=== PATIENT | male | born 1960 | race Caucasian/White ===

== ENCOUNTER 2019-07-07 05:53 | Inpatient (IN) | payer OTHER ==
[~2019-07-07] VITALS: Ht 177.8 cm; Wt 127.0 kg
--- NOTE | 2019-07-07 06:12 | NUR ---
Patient to ER bed 8 to gown for evaluation. Side rails up.
[2019-07-07 06:15] VITALS: BP_SYST 179
--- NOTE | 2019-07-07 06:15 | NUR ---
ER at bedside examining patient.
--- NOTE | 2019-07-07 06:15 | NUR ---
Pt brought in by self. Pt awake, alert, oriented x4. pt ambulates with steady gait. Pt states that he is visitng from [place] on business. Pt states that approx 48 hours ago he began to have epigastric pain 10/10 nonradiating in the midline. Pt states that he has history of gerd and has taken mylanta, Prilosec, tums with no relief. Pt states that he has also tried drinking water and eating low PH crackers. Pt states that he has no other symptoms at this time. Pt denies Nausea, vomiting, diarrhea, chest pain, shortness of breath. pt denies any other complaint. Pt states he has had similar pain before, however it usually self-resolves or is mitigated by otc medications. Pt resting in ED bed, no acute distress at this time. Pt denies headache or dizziness. PT vital signs stable at this time. Pt attached to cardiac, blood pressure and spo2 monitor.
[2019-07-07] MEDS ORDERED: NACL 0.9% 1,000 ML IV ONE ×2 (06:22→09:15)
[2019-07-07] MEDS ORDERED: ONDANSETRON HCL 4 MG/2 ML VIAL IVP ONE (06:30)
[2019-07-07] MEDS ORDERED: MORPHINE 4 MG/ML INJ. SYRINGE IVP ONE ×2 (06:30→09:00)
--- NOTE | 2019-07-07 06:45 | NUR ---
Pt Given Ice chips upon request.
--- NOTE | 2019-07-07 07:12 | NUR ---
Report given to SUKHDEV Oliveros. All care endorsed.
--- NOTE | 2019-07-07 07:20 | NUR ---
Report received from Presley SANTIZO. Pt is in stable condition
[2019-07-07 07:23] LABS: CALCIUM 9.4 mg/dL (8.4-11.0); CREATININE 0.97 mg/dL (0.55-1.30); EOSINOPHILS % (AUTO) 0.1 % (0.0-4.0); HEMATOCRIT 46.9 % (36-54); HEMOGLOBIN 15.2 g/dL (14.0-18.0); LYMPHOCYTES # (AUTO) 1.2 K/uL (1.0-5.5); LYMPHOCYTES % (AUTO) 7.6 % (20.5-51.5); MEAN CORPUSCULAR HEMOGLOBIN 29 pg (27-31); MEAN CORPUSCULAR HGB CONC 33 % (32-36); MEAN CORPUSCULAR VOLUME 90 fL (79.0-98.0); MONOCYTES % (AUTO) 6.5 % (1.7-9.3); NEUTROPHILS # (AUTO) 13.1 K/uL (1.8-7.7); NEUTROPHILS % (AUTO) 85.8 % (40.0-70.0); PLATELET COUNT (AUTO) 262 K/uL (130-430); RED BLOOD CELL COUNT(AUTO) 5.22 MIL/uL (4.2-6.2); RED CELL DISTRIBUTION WIDTH 14.4 % (9.0-15.0); WHITE BLOOD COUNT (AUTO) 15.3 K/uL (4.8-10.8)
[2019-07-07 07:26] LABS: PROTHROMBIN TIME 9.9 SECS (9.5-12.5)
[2019-07-07 07:29] LABS: ALBUMIN 3.9 g/dL (3.4-4.8); TOTAL BILIRUBIN 1.5 mg/dL (0.0-1.0)
--- NOTE | 2019-07-07 08:01 | NUR ---
Patient taken to CT via gurney. Escorted by radiology staff.
[2019-07-07 08:13] LABS: BILIRUBIN,URINE NEGATIVE (NEGATIVE); BLOOD, URINE 1+ (NEGATIVE); CLARITY/URINE CLEAR (CLEAR); COLOR,URINE YELLOW (YELLOW); GLUCOSE,URINE NEGATIVE (NEGATIVE); KETONES,URINE NEGATIVE (NEGATIVE); LEUKOCYTE ESTERASE ,URINE NEGATIVE (NEGATIVE); NITRITE, URINE NEGATIVE (NEGATIVE); PH,URINE 6.5 (5.0-8.0); PROTEIN URINE NEGATIVE (NEGATIVE); UROBILINOGEN,URINE 0.2 (0.2-1.0)
[2019-07-07 08:45] LABS: BACTERIA,URINE RARE /HPF (None Seen); WBC,URINE 0-3 /HPF (0-3)
[2019-07-07 08:46] LABS: MUCUS,URINE 1+ /LPF (None Seen)
[2019-07-07] MEDS ORDERED: DIPHENHYDRAMINE INJ 50 MG/ML VIAL IVP ONE (09:00)
[2019-07-07] MEDS ORDERED: AMPICILLIN SODIUM/SULBACTAM NA 3 GM in NS 100 ML IV ONE (09:00)
--- NOTE | 2019-07-07 09:10 | NUR ---
Orders received via phone from Dr. Lewis, entered by RN.
--- NOTE | 2019-07-07 09:10 | NUR ---
blood cx drawn. Unasyn IVPB given per MD order
--- NOTE | 2019-07-07 09:13 | NUR ---
Patient will be admitted to care of Dr. Lewis. Admitted to Med Surg unit. Will go to room 108C. Complete and up to date summary report printed. SBAR report to be given at bedside with opportunity for questions.
[2019-07-07] MEDS ORDERED: LR 1,000 ML IV SCH (09:15)
[2019-07-07] MEDS ORDERED: AMPICILLIN SODIUM/SULBACTAM NA 3 GM VIAL ONE (09:18)
[2019-07-07] MEDS ORDERED: OMEP20CA11 PO (09:19)
--- NOTE | 2019-07-07 09:42 | NUR ---
Patient will be admitted to care of Dr. Lewis. Admitted to Med Surg unit. Will go to room 108-c. Belongings list completed. Complete and up to date summary report printed. SBAR report to be given at bedside with opportunity for questions.bedside report to be given
--- NOTE | 2019-07-07 09:49 | NUR ---
ADMISSION NOTE Received patient from ER via nyla, received report from KIYA SANTIZO. Patient admitted with diagnosis of ACUTE CHOLECYSTITIS . Patient oriented to hospital routine, call light, toileting and safety-patient verbalized understanding.
[2019-07-07 09:58] VITALS: BP_SYST 162
--- NOTE | 2019-07-07 10:00 | NUR ---
ROUNDS MADE. VITALS SIGNS STABLE EXCEPT FOR BP 162/94. DR MARIE CAME AND EVALUATE AND MADE ORDERS.
--- NOTE | 2019-07-07 10:15 | NUR ---
ABDOMINAL ULTRASOUND DONE.
--- NOTE | 2019-07-07 10:43 | NUR ---
CONSULTATION PAGED/CALLED Reason for Consultation: ACUTE CHOLECYSTITIS Person Who was Notified: JESSIE Consulting Physician: Inseam Trimming Machine Operator Specialty: Ordering Physician:
[2019-07-07] MEDS ORDERED: cloNIDine HCL 0.1 MG TABLET PO PRN (11:00)
[2019-07-07] MEDS ORDERED: ONDANSETRON HCL 4 MG/2 ML VIAL IVP PRN ×3 (11:00→17:45)
[2019-07-07] MEDS ORDERED: HYDROmorphone 1 MG INJ. 1 MG/ML AMPUL IVP PRN (11:15)
[2019-07-07] MEDS ORDERED: HYDROmorphone 1 MG INJ. 1 MG/ML AMPUL IM PRN (11:15)
--- NOTE | 2019-07-07 12:00 | NUR ---
MRSA SCREE BILATERALLY SENT TO LABORATORY
[2019-07-07 12:15] VITALS: BP_SYST 147
[2019-07-07] MEDS: PIPERACILLIN/TAZO 3.375/DEX-IS 50 ML IV SCH ×2 (12:30→21:52)
--- NOTE | 2019-07-07 15:10 | NUR ---
DILAUDID 1 MG IV GIVEN FOR ABDOMINAL PAIN
--- NOTE | 2019-07-07 15:15 | NUR ---
DR DRUMMOND CAME AND EXPLAINED THE PROCEDURE TO THE PATIENT AND FAMILY. AND DR CAZARES ANESTHESIOLOGIST CAME AND BOTH CONSENT SIGNED, INCLUDING THE BLOOD TRANSFUSION IN CASE THEY NEED BLOOD.
--- NOTE | 2019-07-07 15:40 | NUR ---
PATIENT BROUGHT TO OR BY RUSH SANTIZO AND DR CAZARES.
[2019-07-07] MEDS ORDERED: fentaNYL CITRATE/PF 100 MCG/2 ML AMP IVP ONE (15:45)
[2019-07-07] MEDS ORDERED: LR 1,000 ML IV.SOLN IV ONE (15:45)
[2019-07-07] MEDS ORDERED: SEVOFLURANE 15 MIN GAS INH ONE (15:45)
[2019-07-07] MEDS ORDERED: BUPIVACAINE LIPOSOME/PF 266 MG/20 ML VIAL INFIL ONE (15:45)
[2019-07-07] MEDS ORDERED: ROCURONIUM BROMIDE 10 MG/ML (ZEMURON) IV ONE (15:45)
[2019-07-07] MEDS ORDERED: MIDAZOLAM HCL 5 MG/5 ML VIAL IVP ONE (15:45)
[2019-07-07] MEDS ORDERED: NS IRRIG SOLN 1000 ML IR ONE (15:45)
[2019-07-07] MEDS ORDERED: BUPIVACAINE /EPINEPHRINE/PF 0.25% 30 ML VIAL INJ ONE (15:45)
[2019-07-07] MEDS ORDERED: PROPOFOL 200MG/ 20ML VIAL (DIPRIVAN) IV ONE (15:45)
--- NOTE | 2019-07-07 16:08 | NUR ---
PROCEDURE TO BE DONE LAPAROSCOPIC CHOLECYSTECTOMY VERSUS OPEN CHOLECYSTECTOMY AND HERNIAL REPAIR.
[2019-07-07] MEDS ORDERED: fentaNYL CITRATE/PF 100 MCG/2 ML AMP IVP PRN ×2 (16:15)
[2019-07-07 16:18] VITALS: BP_SYST 157
--- NOTE | 2019-07-07 17:04 | NUR ---
still in or for procedure.
[2019-07-07] MEDS ORDERED: CEFAZOLIN 2 GM IVPB PREMIX 50 ML IV SCH (17:45)
--- NOTE | 2019-07-07 18:27 | NUR ---
still in the procedure or recovery room.
[2019-07-07 18:40] VITALS: BP_SYST 132
--- NOTE | 2019-07-07 18:40 | NUR ---
patient came back from recovery via gurney in stable condition. alert awake but still drowsy. family friend at the bedside. vital signs stable. afebrile temp 97.6, respiration, 18, hr 102 O2Sat 94% on 2lnc. as per report patient had sleep apnea on the procedure and on the recovery unit. bp 132/76. still on LR at 120cc/hr infusing on well. has abdominal incision with big band aid x 3. another incision on the umbilical area white big bandaid noted. no bleeding noted. dry/intact. has bilateral scds on the lower extremities noted. will continue to monitor with incoming nite nurse.
--- NOTE | 2019-07-07 19:24 | NUR ---
endorsed to incoming nurse Lonnie SANTIZO
--- NOTE | 2019-07-07 19:30 | NUR ---
OPENING NOTES Patient is resting, eyes closed, no signs of respiratory distress observed, 2L NC, 98% O2 saturation. IVF running, dressings c/d/i. Post op vitals to be continued, incentive spirometer provided, call light within reach, bed alarm on. Patient able to demonstrate use of call light. Patient asks for ice chips. Will follow up and continue to monitor.
[2019-07-07 20:00] VITALS: BP_SYST 127
[2019-07-07] MEDS ORDERED: VANCOMYCIN HCL 1 GM/NS PREMIX 250 ML IV ONE (21:45)
--- NOTE | 2019-07-07 21:45 | NUR ---
SPOKE TO VARGAS PALOMINO TO BE DISCONTINUED, NEW ORDER FOR VANCOMYCIN ONE GRAM ONE TIME ORDER RECEIVED. VERIFIED FLAGYL AND ZOSYN ORDER.
[2019-07-07] MEDS: NACL 0.9% 1,000 ML IV SCH (21:51)
[2019-07-07] MEDS ORDERED: VANCOMYCIN HCL 1000 MG/VIAL IV ONE (22:57)
[2019-07-07] MEDS: HYDROmorphone 1 MG INJ. 1 MG/ML AMPUL IVP PRN (23:31)
--- NOTE | 2019-07-08 00:14 | NUR ---
Patient provided a few ice chips. Patient tolerates well. Will continue to monitor.
[2019-07-08] MEDS ORDERED: metroNIDAZOLE 500 mg/NS 200 ML IV ONE (00:39)
[2019-07-08 01:13] VITALS: BP_SYST 129
[2019-07-08] MEDS: metroNIDAZOLE 500 mg/NS 100 ML IV SCH ×2 (01:51→10:40)
[2019-07-08 02:17] VITALS: BP_SYST 162
[2019-07-08] MEDS: PIPERACILLIN/TAZO 3.375/DEX-IS 50 ML IV SCH ×5 (02:47→23:20)
[2019-07-08] MEDS: NACL 0.9% 1,000 ML IV SCH ×2 (03:32→10:43)
--- NOTE | 2019-07-08 04:00 | NUR ---
Provided pain medication to patient. Patient tolerated well. Will continue to monitor.
[2019-07-08] MEDS: HYDROmorphone 1 MG INJ. 1 MG/ML AMPUL IVP PRN ×3 (04:35→17:53)
[2019-07-08 06:47] LABS: ALBUMIN 3.2 g/dL (3.4-4.8); CALCIUM 8.7 mg/dL (8.4-11.0); CREATININE 1.06 mg/dL (0.55-1.30); POTASSIUM 3.9 mmol/L (3.5-5.1); TOTAL BILIRUBIN 2.3 mg/dL (0.0-1.0)
[2019-07-08 06:53] LABS: BASOPHILS % (AUTO) 0.1 % (0.0-2.0); HEMATOCRIT 43.3 % (36-54); HEMOGLOBIN 14.1 g/dL (14.0-18.0); LYMPHOCYTES # (AUTO) 0.9 K/uL (1.0-5.5); LYMPHOCYTES % (AUTO) 5.8 % (20.5-51.5); MEAN CORPUSCULAR HEMOGLOBIN 30 pg (27-31); MEAN CORPUSCULAR HGB CONC 33 % (32-36); MEAN CORPUSCULAR VOLUME 90 fL (79.0-98.0); MONOCYTES # (AUTO) 1.7 K/uL (0.0-1.0); MONOCYTES % (AUTO) 10.2 % (1.7-9.3); NEUTROPHILS # (AUTO) 13.6 K/uL (1.8-7.7); NEUTROPHILS % (AUTO) 83.9 % (40.0-70.0); PLATELET COUNT (AUTO) 239 K/uL (130-430); RED CELL DISTRIBUTION WIDTH 14.5 % (9.0-15.0); WHITE BLOOD COUNT (AUTO) 16.2 K/uL (4.8-10.8)
--- NOTE | 2019-07-08 07:11 | NUR ---
CLOSING NOTES Patient is resting, no signs of acute respiratory distress observed. IVF running, dressings c/d/i. Incentive spirometer at bedside. All needs met throughout shift. Able to use call light, call light within reach, bed alarm on, bed at lowest position. Will endorse care to oncoming shift.
[2019-07-08 08:14] VITALS: BP_SYST 127
[2019-07-08] MEDS: LISINOPRIL 10 MG TABLET (PRINIVIL) PO SCH (08:37)
[2019-07-08] MEDS: HYDROcodone/ACETAMIN 5-325 MG TAB (NORCO/ VICODIN) PO PRN ×2 (08:38→23:24)
--- NOTE | 2019-07-08 08:45 | NUR ---
PT GIVEN PAIN MED AND AM MEDS. PT ASSISTED BACK TO BED, AFTER SITTING FOR BREAKFAST ON THE CHAIR. PT ASSITED TO BATHROOM EARLIER FOR URINATION.
[2019-07-08] MEDS: ACETAMINOPHEN 325 MG TABLET PO PRN (10:59)
[2019-07-08 12:00] VITALS: BP_SYST 131
--- NOTE | 2019-07-08 14:00 | NUR ---
DR DRUMMOND WAS HERE AND SEEN PT, SPOKE WITH PT AND FAMILY AT BEDSIDE.
--- NOTE | 2019-07-08 15:30 | NUR ---
PT AMBULATED IN THE HALLWAY . PT TOLERATED WELL.
[2019-07-08 16:49] VITALS: BP_SYST 138
--- NOTE | 2019-07-08 17:59 | NUR ---
PT GIVEN PAIN MED, PT NOW SITTING ON CHAIR. DINNER SERVED. ON O2 2L PER NC.
--- NOTE | 2019-07-08 18:47 | NUR ---
DR MARIE WAS HERE AND SEEN PT, INFORMED DR MARIE THAT PT WAS WHEEZING THIS PM. DISCONTINUED THE IV FLUIDS
--- NOTE | 2019-07-08 19:30 | NUR ---
CHANGE OF SHIFT; pt. awake with family members at bedside when received. S/P Lap yamilex yesterday.no discomfort at this time. call light within reach.
--- NOTE | 2019-07-08 19:33 | NUR ---
CLOSING PT HAS BEEN STABLE, HAD 2X EPISODE OF WHEEZING WHICH IS RELIEVED WITH REST. INFORMED AND MD MATOS IV FLUIDS, PT GIVEN PAIN MEDS REQUESTED WITH GOOD PAIN RELIEF. ENDORSED TO SUKHDEV FERRELL.
[2019-07-08 20:30] VITALS: BP_SYST 134
--- NOTE | 2019-07-08 20:30 | NUR ---
NOTES: VS checked. abdominal dressing intact, abdomen still pretty distended. IV lock on rt. antecubital. on case monitor and shows sinus rhythm. instructed on use of incentive spirometer and deep breathing exercise. with sequentials on. on clear liquid, tolerating, no nausea nor vomiting.
--- NOTE | 2019-07-08 23:30 | NUR ---
NOTES: pt. ambulated to the restroom and voided. still pretty tight on his abdomen, passing little bit of gas. abdomen distended, checked surgical site with big bandaids and small dressing. IV antibiotic due started.
--- NOTE | 2019-07-09 03:00 | NUR ---
NOTES: pt. awakened, ambulated to restroom, cannnot go back to sleep, sat up in a chair. instructed if he gets tired to go back to bed and verbalized understanding.
--- NOTE | 2019-07-09 05:00 | NUR ---
NOTES; condition unchanged. remain in the chair, been falling asleep. kept warm with blanket.
[2019-07-09] MEDS: PIPERACILLIN/TAZO 3.375/DEX-IS 50 ML IV SCH ×4 (05:49→23:51)
[2019-07-09 05:50] VITALS: BP_SYST 139
--- NOTE | 2019-07-09 06:30 | NUR ---
CLOSING NOTES; pt. remain seated in the chair. IV antibiotic infused. no c/o pain. pt. needs attended. for further care and assistance.
--- NOTE | 2019-07-09 06:48 | NUR ---
Nutrition Update Robi Scale 18 noted. Pt admitted for Acute Cholecystitis Diet: Clear liquid BMI: 40.2 kg/m2 RD to follow per nutrition care standards.
[2019-07-09 07:18] LABS: BASOPHILS % (AUTO) 0.1 % (0.0-2.0); EOSINOPHILS # (AUTO) 0.1 K/uL (0.0-0.4); EOSINOPHILS % (AUTO) 0.6 % (0.0-4.0); HEMATOCRIT 41.8 % (36-54); HEMOGLOBIN 13.8 g/dL (14.0-18.0); LYMPHOCYTES # (AUTO) 1.3 K/uL (1.0-5.5); LYMPHOCYTES % (AUTO) 8.5 % (20.5-51.5); MEAN CORPUSCULAR HEMOGLOBIN 30 pg (27-31); MEAN CORPUSCULAR HGB CONC 33 % (32-36); MEAN CORPUSCULAR VOLUME 90 fL (79.0-98.0); MONOCYTES # (AUTO) 1.4 K/uL (0.0-1.0); NEUTROPHILS # (AUTO) 12.5 K/uL (1.8-7.7); NEUTROPHILS % (AUTO) 81.8 % (40.0-70.0); PLATELET COUNT (AUTO) 228 K/uL (130-430); RED BLOOD CELL COUNT(AUTO) 4.65 MIL/uL (4.2-6.2); RED CELL DISTRIBUTION WIDTH 14.5 % (9.0-15.0); WHITE BLOOD COUNT (AUTO) 15.3 K/uL (4.8-10.8)
[2019-07-09 07:43] LABS: CALCIUM 9.1 mg/dL (8.4-11.0); POTASSIUM 4.1 mmol/L (3.5-5.1); TOTAL BILIRUBIN 2.1 mg/dL (0.0-1.0)
[2019-07-09 08:00] VITALS: BP_SYST 137
--- NOTE | 2019-07-09 08:00 | NUR ---
Note Pt sitting up in BS chair eating his clear liquids breakfast tray. No SOB/resp distress or severe abdominal pain/discomfort noted at this time. Abdominal lap sites (4) CDI at this time. IV in right forearm intact and patent at this time. Call light within reach.
[2019-07-09] MEDS: LISINOPRIL 10 MG TABLET (PRINIVIL) PO SCH (09:41)
[2019-07-09] MEDS: HYDROcodone/ACETAMIN 5-325 MG TAB (NORCO/ VICODIN) PO PRN ×2 (10:54→16:54)
[2019-07-09 12:00] VITALS: BP_SYST 141
--- NOTE | 2019-07-09 12:00 | NUR ---
Note Pt did self hygiene care and bath in restroom. Pt ambulated in hallway with at side with steady gait and no weakness/dizziness noted at this time. Pt worked with Physical Therapy and tolerated evaluation and walking up stairs well. No severe pain/discomfort noted at this time. Pt's and sister at bedside all shift. Call light within reach.
--- NOTE | 2019-07-09 13:18 | NUR ---
Dietitian Recommendations *Recommend: advance diet to mechanical soft. *Recommend Riccardo BID. Please see Nutritional Assessment for details. ALBINO RD
[2019-07-09 16:00] VITALS: BP_SYST 124
--- NOTE | 2019-07-09 16:00 | NUR ---
Note Pt was seen and evaluated by Dr Rosario at bedside at this time. Pt denies any needs at this time. Call light within reach.
--- NOTE | 2019-07-09 18:45 | NUR ---
Note Pt finished eating his dinner and is now ambulating in hallway with and sister by his side. No SOB/resp distress or severe abdominal pain/discomfort noted at this time. Abdominal dressing CDI at this time. Pt was checked on q1' and PRN all shift for needs and care. IV in right forearm intact and patent. No needs noted at this time. Call light within reach.
[2019-07-09] MEDS ORDERED: MILK OF MAGNESIA 30 ML UDC PO ONE (19:30)
[2019-07-09] MEDS ORDERED: BISACODYL 5 MG TABLET.DR (DULCOLAX) PO ONE (19:30)
--- NOTE | 2019-07-09 19:30 | NUR ---
CHANGE OF SHIFT; pt. with family visiting. awake and resting. S/P lap yamilex, 2 day post op. no compalints at this time. call light at bedside. will assess later.
--- NOTE | 2019-07-09 20:30 | NUR ---
NOTES: Vs checked. encouraged on deep breathing and use of incentive spirometer. abdomen checked, small dressing and band aids in place. been passing gas. ambulated to day out in the hallway today per pt. IV lock on rt. antecubital. needs attended. call light within reach.
[2019-07-09 21:00] VITALS: BP_SYST 129
[2019-07-09] MEDS: DOCUSATE SODIUM 250 MG CAPSULE PO SCH (21:27)
--- NOTE | 2019-07-09 21:30 | NUR ---
NOTES: due meds for stool given. tolerating diet. no nausea nor vomiting.
--- NOTE | 2019-07-10 | NUR ---
NOTES: medicated for c/o post op abdominal pain and due IV antibiotic infused. repositioned self for comfort.
[2019-07-10 00:15] VITALS: BP_SYST 130
--- NOTE | 2019-07-10 01:30 | NUR ---
NOTES: noted relief, called and ambulated to restroom.
--- NOTE | 2019-07-10 04:00 | NUR ---
NOTES: condition unchanged. continue to monitor.
[2019-07-10] MEDS: PIPERACILLIN/TAZO 3.375/DEX-IS 50 ML IV SCH ×5 (06:15→23:17)
--- NOTE | 2019-07-10 06:51 | NUR ---
CLOSING NOTES; pt. been sitting up in chair, falling asleep. due IV antibiotic infused. no complaints noted. reminded on deep breathing. for further care and assist. with visitor at bedside. call light within reach.
[2019-07-10 07:08] LABS: ALBUMIN 2.9 g/dL (3.4-4.8); CALCIUM 9.6 mg/dL (8.4-11.0); CREATININE 0.97 mg/dL (0.55-1.30); POTASSIUM 3.8 mmol/L (3.5-5.1); TOTAL BILIRUBIN 1.5 mg/dL (0.0-1.0)
[2019-07-10 08:00] VITALS: BP_SYST 130
--- NOTE | 2019-07-10 08:00 | NUR ---
initial notes rec patient awake alert and sitting at bedside. denies pain. resp easy and unlabored. no sob noted. bed to the lowest positon and side rails up and locked. call light within reached.
[2019-07-10] MEDS: DOCUSATE SODIUM 250 MG CAPSULE PO SCH ×2 (08:33→21:03)
[2019-07-10] MEDS: LISINOPRIL 10 MG TABLET (PRINIVIL) PO SCH (08:34)
[2019-07-10 09:07] LABS: BASOPHILS % (AUTO) 0.1 % (0.0-2.0); EOSINOPHILS # (AUTO) 0.3 K/uL (0.0-0.4); EOSINOPHILS % (AUTO) 2.5 % (0.0-4.0); HEMATOCRIT 40.3 % (36-54); HEMOGLOBIN 13.2 g/dL (14.0-18.0); LYMPHOCYTES # (AUTO) 1.4 K/uL (1.0-5.5); LYMPHOCYTES % (AUTO) 11.6 % (20.5-51.5); MEAN CORPUSCULAR HEMOGLOBIN 30 pg (27-31); MEAN CORPUSCULAR HGB CONC 33 % (32-36); MEAN CORPUSCULAR VOLUME 90 fL (79.0-98.0); MONOCYTES # (AUTO) 1.3 K/uL (0.0-1.0); MONOCYTES % (AUTO) 10.8 % (1.7-9.3); NEUTROPHILS # (AUTO) 9.3 K/uL (1.8-7.7); PLATELET COUNT (AUTO) 282 K/uL (130-430); RED BLOOD CELL COUNT(AUTO) 4.49 MIL/uL (4.2-6.2); RED CELL DISTRIBUTION WIDTH 14.4 % (9.0-15.0); WHITE BLOOD COUNT (AUTO) 12.4 K/uL (4.8-10.8)
--- NOTE | 2019-07-10 10:00 | NUR ---
rounds sitting a bedside . denies pain. no sob noted. call light within reached.
[2019-07-10] MEDS: HYDROcodone/ACETAMIN 5-325 MG TAB (NORCO/ VICODIN) PO PRN ×3 (10:58→23:24)
--- NOTE | 2019-07-10 12:00 | NUR ---
rounds due meds given and pt was ambulating on the hallway and sita well with his family.
[2019-07-10] MEDS ORDERED: BISACODYL 5 MG TABLET.DR (DULCOLAX) PO ONE (14:45)
[2019-07-10] MEDS: ACETAMINOPHEN 325 MG TABLET PO PRN (14:47)
--- NOTE | 2019-07-10 14:51 | NUR ---
CONSULTATION PAGED/CALLED Reason for Consultation: SEPSIS Person Who was Notified: JESENIA Consulting Physician: Ice Carver Specialty: Ordering Physician:
[2019-07-10 16:00] VITALS: BP_SYST 122
--- NOTE | 2019-07-10 16:00 | NUR ---
rounds ambulating at intervals with family. call light within reached.
--- NOTE | 2019-07-10 17:55 | NUR ---
rounds seen by dr neri at bedside. due abx in progress. denies pain. no sob noted. call light mary reached.
--- NOTE | 2019-07-10 19:20 | NUR ---
CHANGE OF SHIFT; pt. sitting up in bed with family members visiting. no acute distress. some tolerable post op pain. will assess later. call light within reach. will start on new antibiotic.
[2019-07-10 20:00] VITALS: BP_SYST 127
--- NOTE | 2019-07-10 20:00 | NUR ---
NOTES: VS checked. instructed on deep breathing and use of Incentive spirometer. still no BM, dayshift gave him dulcolax tablet as ordered. moves all extremities. S/P lap yamilex, abdominal dressing with big band aids. call light within reach.
[2019-07-10] MEDS: FLUCONAZOLE 200 mg/ NS 100 ML IV SCH (20:01)
--- NOTE | 2019-07-10 23:00 | NUR ---
NOTES: still awake, dozing on and off listening to his lap top with his earphone.
--- NOTE | 2019-07-10 23:25 | NUR ---
NOTES: pain medication given with [place] po and due IV antibiotic infused. pt. needs attended.
--- NOTE | 2019-07-11 01:00 | NUR ---
NOTES: noted relief of pain, pt. sleeping when checked on high fowlers position.
--- NOTE | 2019-07-11 03:00 | NUR ---
NOTES: pt. been sleeping. no complaints manifested. condition unchanged.
[2019-07-11] MEDS: PIPERACILLIN/TAZO 3.375/DEX-IS 50 ML IV SCH ×3 (05:20→17:42)
[2019-07-11 05:24] VITALS: BP_SYST 120
--- NOTE | 2019-07-11 06:00 | NUR ---
NOTES: awakened for due IV antibiotic. IV site noted very positional, some leak noted. no complaints noted. anticipating discharge today.
[2019-07-11 08:00] VITALS: BP_SYST 131
--- NOTE | 2019-07-11 08:00 | NUR ---
initial notes rec patient awake alert with ivl on the r ac intact. no infiltration noted. resp easy and unlabored. resp easy and unlabored. no sob noted. ambulates on the hallway at intervals. call light within reached.
[2019-07-11] MEDS: DOCUSATE SODIUM 250 MG CAPSULE PO SCH ×2 (09:00→10:21)
--- NOTE | 2019-07-11 10:00 | NUR ---
rounds due meds were given. ambulating on the hallway and sita well. no sob noted.
[2019-07-11] MEDS: LISINOPRIL 10 MG TABLET (PRINIVIL) PO SCH (10:22)
--- NOTE | 2019-07-11 13:00 | NUR ---
rounds awaiting for dr frias and wants to home. denies pain at this time. call light within reached.
[2019-07-11 13:55] VITALS: BP_SYST 136
[2019-07-11 14:51] LABS: CALCIUM 9.1 mg/dL (8.4-11.0); CREATININE 1.01 mg/dL (0.55-1.30); POTASSIUM 3.7 mmol/L (3.5-5.1)
[2019-07-11 14:58] LABS: TOTAL BILIRUBIN 0.7 mg/dL (0.0-1.0)
[2019-07-11 14:59] LABS: ALBUMIN 2.5 g/dL (3.4-4.8)
[2019-07-11 15:14] LABS: BASOPHILS % (AUTO) 0.3 % (0.0-2.0); EOSINOPHILS # (AUTO) 0.3 K/uL (0.0-0.4); EOSINOPHILS % (AUTO) 3.2 % (0.0-4.0); HEMATOCRIT 37.4 % (36-54); HEMOGLOBIN 12.4 g/dL (14.0-18.0); LYMPHOCYTES % (AUTO) 11.3 % (20.5-51.5); MEAN CORPUSCULAR HEMOGLOBIN 30 pg (27-31); MEAN CORPUSCULAR HGB CONC 33 % (32-36); MEAN CORPUSCULAR VOLUME 89 fL (79.0-98.0); MONOCYTES # (AUTO) 0.8 K/uL (0.0-1.0); MONOCYTES % (AUTO) 8.6 % (1.7-9.3); NEUTROPHILS # (AUTO) 6.7 K/uL (1.8-7.7); NEUTROPHILS % (AUTO) 76.6 % (40.0-70.0); PLATELET COUNT (AUTO) 312 K/uL (130-430); RED BLOOD CELL COUNT(AUTO) 4.18 MIL/uL (4.2-6.2); RED CELL DISTRIBUTION WIDTH 14.1 % (9.0-15.0); WHITE BLOOD COUNT (AUTO) 8.8 K/uL (4.8-10.8)
[2019-07-11 16:00] VITALS: BP_SYST 136
--- NOTE | 2019-07-11 17:00 | NUR ---
rounds awaiting for dr frias to see and d/c patient. ambulates at intervals in the hallway.denies pain.
[2019-07-11] MEDS ORDERED: LACT1POW8 MC (17:24)
[2019-07-11] MEDS ORDERED: METR500T PO (17:24)
[2019-07-11] MEDS ORDERED: AMOX-426 PO (17:24)
[2019-07-11] MEDS: FLUCONAZOLE 200 mg/ NS 100 ML IV SCH (17:36)
[2019-07-11 18:26] VITALS: BP_SYST 131
--- NOTE | 2019-07-11 19:00 | NUR ---
rounds seen by dr frias and with order to go home. 2 abx was infused and ready to go home. ivl was removed.endorsed to night nurse león. pt aware of his appt with dr neri and dr hawkins. denies pain, needs attended and stable. at bedside.
--- NOTE | 2019-07-11 20:05 | NUR ---
RECEIVED REPORT FROM SUKHDEV PLEITEZ. DISCHARGE INSTRUCTIONS GIVEN. PATIENT AND STATED UNDERSTANDING. PATIENT SIGNED DC PAPERS.
== END 2019-07-11 20:00 | disposition home or self-care (01) | DRG 417 ==
LOC: SED 05:53 → SMU 09:10
PROVIDERS: ADMIT Internal Medicine; ATTEND Internal Medicine
PROC: 0WQF4ZZ Repair Abdominal Wall, Percutaneous Endoscopic Approach (ICD-10-PCS; 2019-07-07)
PROC: 0DBU4ZZ Excision of Omentum, Percutaneous Endoscopic Approach (ICD-10-PCS; 2019-07-07)
PROC: 3E0T3BZ Introduction of Anesthetic Agent into Peripheral Nerves and Plexi, Percutaneous Approach (ICD-10-PCS; 2019-07-07)
PROC: 3E0T33Z Introduction of Anti-inflammatory into Peripheral Nerves and Plexi, Percutaneous Approach (ICD-10-PCS; 2019-07-07)
PROC: 0FT44ZZ Resection of Gallbladder, Percutaneous Endoscopic Approach (ICD-10-PCS; principal; 2019-07-07 15:40)
DX: K81.0 Acute cholecystitis (principal); K65.9 Peritonitis, unspecified; A41.9 Sepsis, unspecified organism; Z68.41 Body mass index [BMI] 40.0-44.9, adult; K43.2 Incisional hernia without obstruction or gangrene; K42.9 Umbilical hernia without obstruction or gangrene; K66.0 Peritoneal adhesions (postprocedural) (postinfection); K82.A1 Gangrene of gallbladder in cholecystitis; I10 Essential (primary) hypertension; K21.9 Gastro-esophageal reflux disease without esophagitis; E66.01 Morbid (severe) obesity due to excess calories; Z79.899 Other long term (current) drug therapy
CPT/HCPCS: 36415; 71045; 76700-TC; 80053; 81000-TC; 82150-TC; 83605; 83690-TC; 84484; 85025; 85610-TC; 87040-TC; 87070; 87070-TC; 87075-TC; 87081; 88108; 88302; 88304; 88305; 93005; 94010; 96365; 96375; 96376; 99285; C1727; C9290; J0295; J0690; J1170; J1200; J1450; J2250; J2270; J2405; J2543; J2704; J3010; J3370; J3490; J7030; J7050; J7120